=== PATIENT | male | born 1950 | race Caucasian/White ===

== ENCOUNTER 2019-01-26 07:10 | Observation (INO) | payer MEDICARE, OTHER ==
[2019-01-20 12:28] LABS: BASOPHILS # (AUTO) 0.1 (0.0-0.1); BASOPHILS % 0.9 % (0.0-1.0); EOSINOPHILS # (AUTO) 0.2 (0.0-0.4); HEMATOCRIT 47.2 % (38.2-49.6); HEMOGLOBIN 16.1 g/dL (14.0-18.0); LYMPHOCYTES # (AUTO) 1.9 (1.0-3.2); LYMPHOCYTES % 27.4 % (18.0-39.1); MEAN CORPUSCULAR HEMOGLOBIN 31.4 pg (28-32); MEAN CORPUSCULAR HGB CONC 34.1 g/dL (31-35); MEAN CORPUSCULAR VOLUME 92.2 fL (81-99); MONOCYTES # (AUTO) 0.5 (0.2-0.8); MONOCYTES % 6.5 % (4.4-11.3); NEUTROPHILS # (AUTO) 4.2 (2.1-6.9); NEUTROPHILS % 60.6 % (38.7-80.0); PLATELET COUNT 226 x10e3/uL (140-360); RED BLOOD COUNT 5.12 x10e6/uL (4.3-5.7); RED CELL DISTRIBUTION WIDTH 12.4 % (11.7-14.4)
[2019-01-20 12:59] LABS: ALANINE AMINOTRANSFERASE 20 IU/L (0-55); ALBUMIN/GLOBULIN RATIO 1.3 (0.8-2.0); ALKALINE PHOSPHATASE 73 IU/L (40-150); ANION GAP 13.4 mmol/L (8-16); BLOOD UREA NITROGEN 19 mg/dL (7-26); BUN/CREATININE RATIO 18 (6-25); CALCIUM 9.7 mg/dL (8.4-10.2); CARBON DIOXIDE 28 mmol/L (22-29); CHLORIDE 103 mmol/L (98-107); CREATININE, SERUM 1.08 mg/dL (0.72-1.25); EST GLOMERULAR FILTRATION RATE > 60 ML/MIN (60-); GLUCOSE 97 mg/dL (74-118); POTASSIUM 4.4 mmol/L (3.5-5.1); SODIUM 140 mmol/L (136-145)
[2019-01-20 13:00] LABS: CHOL/HDL RATIO 3.9 (3.9-4.7)
[2019-01-26] VITALS (18 sets, daily range): BP systolic 125–163; BP diastolic 66–108
[~2019-01-26] VITALS: Ht 175.3 cm; Wt 138.3 kg
[~2019-01-26 07:10] MED LIST: AMLODIPINE BESYL5 MG PO; BENICAR20 MG PO; FLOMAX0.4 MG PO; FUROSEMIDE40 MG PO; METOPROLOL SUCC50 MG PO; POTASSIUM CHLO10 ME1 PO
--- OUTSIDE RECORDS SUMMARY | 2019-01-26 07:19 | XMS REPORT | Clinical Summary ---
Author Author [facility] Address Unknown Phone Unavailable Care Team Providers Care Vehicle Monitor Technician Name Role Phone Roya Graham MD PCP Allergies Not on File Medications Not on file Active Problems Not on file Social History Date Tobacco Use Types Packs/Day Years Used Never Assessed Sex Assigned at Date Recorded Not on file Industry Job Start Date Occupation Not on file Not on file Not on file Travel End Travel History Travel Start No recent travel history available. Last Filed Vital Signs Not on file Plan of Treatment Health Maintenance Due Date Last Done Comments COLONOSCOPY SCREENING 2001 SHINGLES VACCINES (#1) 2001 65+ PNEUMOCOCCAL VACCINE 2016 (1 of 2 - PCV13) INFLUENZA VACCINE 02/18/2019 Results Not on fileafter 01/25/2018 Insurance Type Payer Benefit Subscriber ID Effective Phone Address Plan / Dates Group Commercial COMMERCIAL MISC MISC xxxxxx-xx 2017-P COMMERCIAL resent Medicare MEDICARE MEDICARE xxxxxxxxxx 2016-P JUARES, PART A AND resent [place] B Advance Directives Patient has advance care planning documents on file. For more information, real e contact: Jose Kenny [address] [place] [phone]
[2019-01-26] MEDS ORDERED: FENTANYL CITRATE/PF 100MCG/2 ML INJ ONE ×2 (08:48→09:52)
[2019-01-26] MEDS ORDERED: LIDOCAINE HCL 2% LOCAL 20 ML VIAL ONE ×2 (08:48→09:49)
[2019-01-26] MEDS ORDERED: MIDAZOLAM HCL 2 MG/2 ML VIAL ONE ×3 (08:48→09:51)
[2019-01-26] MEDS ORDERED: VERAPAMIL HCL 2.5 MG/ML 2 ML VIAL ONE (08:48)
[2019-01-26] MEDS ORDERED: HEPARIN SOD/SOD CHLORIDE 2,000 ML ONE (08:48)
[2019-01-26] MEDS ORDERED: IOPAMIDOL 370 MG/ML 200 ML INFUS..BTL INJ ONE (08:49)
[2019-01-26] MEDS ORDERED: SODIUM CHLORIDE 0.9% 1000ML 1,000 ML ONE (08:49)
[2019-01-26] MEDS ORDERED: DIPHENHYDRAMINE HCL INJ 50 MG/ML VIAL ONE (09:39)
[2019-01-26] MEDS ORDERED: SODIUM CHLORIDE 0.9% 50ML 50 ML ONE (09:52)
[2019-01-26] MEDS ORDERED: CEFAZOLIN SOD 1 GM VIAL ONE (09:53)
--- NOTE | 2019-01-26 10:12 | NUR ---
1012Bedside report received from GLORIA Jefferson. Identifier x2 .Alert oriented and appropriate, PERRLA, respirations even and unlabored to room air. Pulses x4 extremities equal and strong. Pedal pulses PT/DP palpable . Cap fill brisk < 3 sec. Skin warm and dry integrity appears XXX. IV 20g presents healthy w/o s/s of infiltration or complaint. Abdomen soft and supple. pt offered toileting, denies need to urinate or defecate. Pt and family verbalizes understanding of POC. Currently w/o complaint of pain or need. TR band ok to reduce air at 1100am (13cc in balloon)[place] RTR will removed Bilateral femoral sheath x2 later. No gross issues pain, pallor, pressure dysrhythmia.Normal neuro vascular function noted to rt Tr band approach. 1130 ACT 146 Report to nuclear medicine pet ct technologist and head nurse Ronny CASTRO Successful TR band and removal per Ronny CASTRO with transfer to floor care RM 179 with stretcher and tele. No gross issues pain.pallor pressure or dysrhythmia. Discussed POC with family and son signed POC has copies and aware of importance to f/o Dr Koroma office this week regarding potential surgical followup. carlee/rn -
[2019-01-26] MEDS ORDERED: ATROPINE SULFATE 0.1 MG/ML 10ML SYR ONE (10:58)
--- NOTE | 2019-01-26 11:30 | NUR ---
1130 ACT 146 reported to Ronny CASTRO computed tomography technologist to remove rt and left sheaths.TR band air removal to be completed by Ronny CASTRO No gross issues pain,pallor,pressure or dysrhythmia.Rt TR band site with normal neuro vascular function. carlee/nora
--- NOTE | 2019-01-26 11:43 | NUR ---
R sheath pulled by Chucho Fischer PCIS. Pt tolerating well
--- NOTE | 2019-01-26 11:45 | NUR ---
1145 Completed TR band removal and Ronny Gonzales completed sheath removal care Transfer to floor car per stretcher with tele and RN escort. Stable vs and ekg No gross issues pain pallor pressure or dysrhythmia Rt Tr band with normal neuro vascular function Poc discussed with Son and has copies of POC ,pt and family aware of importance of f/o care. OK to dc home at 3pm. carlee/rn
--- NOTE | 2019-01-26 12:11 | Operative Report ---
DATE OF PROCEDURE: 01/26/2019 SURGEON: Sam Koroma MD PROCEDURES PERFORMED: 1. Left heart catheterization, selective coronary angiography. 2. Selective right iliac angiogram. 3. Deployment of right wrist TR band. COMPLICATIONS: Unable to access via right radial with inability to access through the right iliac artery due to aneurysm and tortuosity. RECOMMENDATION: CT with contrast of the chest, abdomen, and pelvis followed by staged intervention of the left anterior descending artery based on CT findings. DESCRIPTION OF PROCEDURE: Access obtained in the right radial artery, unable to advance wire. Access obtained in the right femoral artery. Extreme tortuosity of the right iliac artery with aneurysm was noted. Access obtained in the left femoral artery. A 6-Ecuadorean sheath was placed. Left anterior descending artery, proximal tubular 60% to 70% stenosis. Remaining arteries including the circumflex and right coronary artery had mild 20% stenosis. 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 Right wrist TR band applied. Sheath removed under manual pressure. The patient was discharged home same day with instructions as listed above. MD EMMIE Castro/THERESAL /[id number]
--- OUTSIDE RECORDS SUMMARY | 2019-01-26 12:42 | XMS REPORT | Clinical Summary ---
Author Author [facility] Address Unknown Phone Unavailable Care Team Providers Care Incoming Inspector Name Role Phone Roya Graham MD PCP [...] more information, real e contact: Jose Kenny [address] [place] [phone]
--- NOTE | 2019-01-26 13:24 | NUR ---
patient instructed by nursing in OBS and labor training manager to not bend legs until instructed with no success. family at BS. uriel groins with no bleeding or hematoma at this time. vitals stable with no distress.
[2019-01-26] MEDS ORDERED: MORPHINE SULFATE INJ 4 MG/ML INJ 1ML IV PRN (14:00)
== END 2019-01-26 15:15 | disposition home or self-care (01) ==
LOC: CATH LAB 07:10 → CATH LAB V 11:54 → IMCU 13:04
PROVIDERS: ADMIT Internal Medicine Interventional Cardiology; ATTEND Internal Medicine Interventional Cardiology
DX: I25.118 Atherosclerotic heart disease of native coronary artery with other forms of angina pectoris (principal); I72.3 Aneurysm of iliac artery; I11.0 Hypertensive heart disease with heart failure; I50.20 Unspecified systolic (congestive) heart failure; Z01.812 Encounter for preprocedural laboratory examination; E78.00 Pure hypercholesterolemia, unspecified; Z88.8 Allergy status to other drugs, medicaments and biological substances; Z83.3 Family history of diabetes mellitus; Z82.49 Family history of ischemic heart disease and other diseases of the circulatory system; Z84.1 Family history of disorders of kidney and ureter
CPT/HCPCS: 36415; 80053; 80061; 85025; 93454; G0378; J0690; J1200; J2001; J2250; J7030; Q9967; J3010

== ENCOUNTER → 2019-02-03 | Outpatient (CLI) | payer MEDICARE, OTHER ==
[~2019-02-03] MED LIST changes: +IOPAMIDOL 370 MG/ML 200 ML INFUS..BTL INJ ONE; +SODIUM CHLORIDE 0.9% 50ML 50 ML ONE
[2019-02-03 10:37] LABS: BLOOD UREA NITROGEN 22 mg/dL (7-26); BUN/CREATININE RATIO 20 (6-25); CREATININE, SERUM 1.09 mg/dL (0.72-1.25); EST GLOMERULAR FILTRATION RATE > 60 ML/MIN (60-)
--- NOTE | 2019-02-03 15:58 | Diagnostic Imaging Report ---
ADDENDUM #1 Addendum: Clarification of true lumen and false lumen branch vessels: In the abdomen, the superior mesenteric artery and right renal artery originate from the smaller true lumen with calcified plaque in the diaz. Celiac artery originates from the true lumen at the margin of the dissection. The left renal artery and CARMEN originate from the larger false lumen. There is equal opacification of the true and false lumens. No thrombus is seen within the false lumen. Signed by: Dr. Jaden Ludwig M.D. on 02/04/2019 1:27 PM ORIGINAL REPORT CTA OF THE THORACOABDOMINAL AORTA Comparison: None Technique: Multi-detector CT technology was employed. Non-gated CT was performed of the chest, abdomen, and pelvis following the IV administration of 100 cc of Isovue-370.. Oral contrast: None CT Dose-Length Product (DLP): 1066.[address] Dose Reduction Employed: Yes For optimization of anatomic evaluation, multiplanar reconstruction, maximum intensity projections, and advanced 3-D off-line postprocessing were performed on a dedicated stand-alone workstation under the direct supervision of the interpreting physician. FINDINGS: VASCULAR WITH ADVANCED 3-D OFF-LINE POSTPROCESSING: Aortic valve morphology is incompletely assessed on this non-gated examination. The thoracic aorta is normal in course, caliber, and contour. There is an aortic dissection beginning near the origin of the left subclavian artery and extending distally to the origin of the left common iliac artery (Umesh B, DeBakey III). The true and false lumens are opacified. The celiac artery originates from the true lumen, SMA from the false lumen, left renal artery from the true lumen and right renal artery from the false lumen and CARMEN from the true lumen. The dissection extends into the origin of the left common iliac artery below which the iliac arteries are markedly tortuous and widely patent. The arch vessel branching pattern is normal . All of the arch branch vessels appear widely patent in their proximal portions. The abdominal aorta is normal in course, caliber, and contour. Abdominal aortic dissection as noted above. Music Composition Teacher dimensions of the thoracic aorta are as follows: approximate 2.6 cm at the aortic annulus approximate 4.3 cm at the sinuses of Valsalva (the sinotubular junction is preserved) 4.3 cm at the mid ascending aorta 4.1 cm at the distal ascending aorta 5.1 cm at the mid transverse arch 4.4 cm at the proximal descending thoracic aorta 4.3 cm at the mid descending thoracic aorta 3.7 cm at the diaphragmatic hiatus. The abdominal aorta measures: 3.4 cm at the supramesenteric segment 3.1 cm at the mesenteric segment 2.9 cm at the renal segment 2.8 cm at the mid infrarenal segment 2.8 cm at the aortic bifurcation. The celiac axis, SMA, and CARMEN are patent. There are single renal arteries bilaterally, both of which appear patent. The pelvic arteries are tortuous, but otherwise normal in caliber and contour. CHEST: The thyroid is mildly heterogeneous. No mediastinal lymphadenopathy. Main pulmonary artery measures 3.1 cm. There is extensive coronary artery calcification. Heart size normal with no pericardial effusion. Lung windows reveal no acute abnormalities. There is no pulmonary parenchymal mass, infiltrate, or pleural effusion. ABDOMEN: The liver, gallbladder, spleen, and pancreas appear normal. There is a 9.3 cm right adrenal mass which contains macroscopic fat with additional soft tissue components. The right kidney is mildly atrophic. There is no abnormal mass or hydronephrosis. PELVIS: The urinary bladder appears unremarkable, likely elevated by pelvic lipomatosis. No abnormal pelvic mass or fluid collection. There is a large left inguinal hernia containing loops of nondilated sigmoid colon. There is no significant retroperitoneal adenopathy. No free fluid or free air within the abdomen or pelvis. The bowel appears unremarkable on this non-GI contrast examination. Superficial surrounding soft tissue shows a moderate-sized umbilical hernia with 2.9 cm neck and 7.4 cm hernia size. The hernia contains fat. No acute or suspicious bony lesions. There is degenerative change in lumbar spine with narrowing of the L5-S1 interspace. The office of Dr. Derek Koroma was called. A report was given to Dr. Torres on 02/03/2019 at 3:50 PM. IMPRESSION: 1. Dissection of the thoracoabdominal aorta. The dissection begins at the level of the left subclavian artery and extends to the origin of the left common iliac artery. The celiac trunk, left renal artery and CARMEN originate from the true lumen. The SMA and right renal artery originate from the smaller false lumen which is opacified. There is mild atrophy of the right kidney. 2. The ascending thoracic aorta is ectatic measuring up to 4.3 cm. The mid aortic arch is aneurysmal measuring up to 5.1 cm. Proximal and mid descending thoracic aorta are also aneurysmal measuring up to 4.4 cm. The abdominal aorta measures up to 3.4 cm in the upper abdomen. 3. There is a large right adrenal mass measuring 9.3 cm. 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 Because of its size, it may be further characterized with adrenal mass MRI. 4. Large left inguinal hernia which contains a loop of sigmoid colon. Signed by: Dr. Jaden Ludwig M.D. on 02/03/2019 3:54 PM
== END ==
LOC: CT 09:51
PROVIDERS: ATTEND Internal Medicine Interventional Cardiology
DX: I71.6 Thoracoabdominal aortic aneurysm, without rupture (principal)
CPT/HCPCS: 36415; 71275; 74174; 82565; 84520; Q9967